=== PATIENT | male | born 1965 | race Native Hawaiian/Other Pacific Islander ===

== ENCOUNTER 2025-01-03 06:55 | Emergency (ER) | payer MEDICAID ==
[~2025-01-03] VITALS: Ht 172.7 cm; Wt 118.2 kg
[2025-01-03 06:57] VITALS: TEMP 98.2
[2025-01-03 07:21] LABS: GLUCOMETER DEV NAME(LOC) ER.7; GLUCOSE,POINT OF CARE 367 MG/DL (70-110)
[2025-01-03] MEDS: ACETAMINOPHEN 500 MG TABLET PO ONE (07:58)
[2025-01-03] MEDS: CEPHALEXIN MONOHYDRATE 500 MG CAPSULE PO ONE (07:58)
[2025-01-03] MEDS: INSULIN REGULAR, HUMAN 100 UNITS/ML SQ ONE (07:59)
[2025-01-03] MEDS ORDERED: HUM100IN SQ (08:02)
[2025-01-03] MEDS ORDERED: EMPA25TA3 PO (08:02)
[2025-01-03] MEDS ORDERED: SEMA1PEN3 SQ (08:02)
[2025-01-03] MEDS ORDERED: LANC-893 TP (08:02)
[2025-01-03] MEDS ORDERED: SPIR-37 PO (08:02)
[2025-01-03] MEDS ORDERED: METO-408 PO (08:02)
[2025-01-03] MEDS ORDERED: SACU1TAB PO (08:02)
[2025-01-03] MEDS ORDERED: CEPH-558 PO (08:03)
[2025-01-03] MEDS ORDERED: DOXY-354 PO (08:03)
[2025-01-03 08:10] VITALS: BP 148/78; PULSE 66; RESP 16; O2SAT 99
== END 2025-01-03 08:17 | disposition home or self-care (01) ==
LOC: EMS 06:55
DX: L02.214 Cutaneous abscess of groin (principal); E11.65 Type 2 diabetes mellitus with hyperglycemia; Z79.4 Long term (current) use of insulin; Z79.85 Long-term (current) use of injectable non-insulin antidiabetic drugs; Z79.899 Other long term (current) drug therapy
CPT/HCPCS: 99285; 11042; 82962; 96372; J1815